=== PATIENT | female | born 1955 | race African-American/Black ===

== ENCOUNTER 2017-12-12 06:10 | Emergency (ER) | payer OTHER ==
[~2017-12-12] VITALS: Ht 147.3 cm; Wt 59.0 kg
[2017-12-12] MEDS ORDERED: SYNTHROID150 MCG ORAL (06:19)
[2017-12-12 06:24] VITALS: BP 128/78
--- NOTE | 2017-12-12 06:56 | Emergency Room Report ---
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 the patient tucker apparently was drenched with urine and the patient reports that there was some splashed of urine appeared to both eyes patient did wash her eyes out initially Denies any headache denies any visual change denies any other trauma this happened just prior to arrival approximately 6:00 in the morning Allergies: Coded Allergies: No Known Allergies (Unverified , 12/12/17) Patient History Past Medical History: see triage record Pertinent Family History: none Now: No Reviewed Nursing Documentation: PMH: Agreed, PSxH: Agreed Nursing Documentation-PMH Past Medical History: No History, Except For Hx Cardiac Problems: No - Hypothyroidism Review of Systems All Other Systems: negative except mentioned in HPI Physical Exam Vital Signs Date Time Temp Pulse Resp B/P (MAP) Pulse Ox O2 Delivery O2 Flow Rate FiO2 12/12/17 06:15 97.7 66 16 128/78 99 Room Air Sp02 EP Interpretation: reviewed, normal General Appearance: well appearing, no apparent distress Head: normocephalic, atraumatic Eyes: bilateral eye PERRL, bilateral eye EOMI ENT: hearing grossly normal, normal pharynx, TMs + canals normal, uvula midline Neck: supple Respiratory: lungs clear Gastrointestinal: non tender, soft Musculoskeletal: normal inspection Neurologic: alert, oriented x3 Skin: normal color, no rash Lymphatic: no adenopathy Medical Decision Making Diagnostic Impression: Primary Impression: work foreign contact Additional Impression: Foreign body, eye ER Course Given the patient's presentation and history Baseline exposure blood tests were obtained Patient was also wearing her contacts She was requested to remove the contacts and further washout of the eyes were performed Patient at this time is stable for close workers comp clinic followup repeat blood test as appropriate Labs Test 12/12/17 06:55 HIV (1&2) Antibody Rapid Negative (NEGATIVE) Last Vital Signs Date Time Temp Pulse Resp B/P (MAP) Pulse Ox O2 Delivery O2 Flow Rate FiO2 12/12/17 06:24 97.7 16 128/78 99 Room Air 12/12/17 06:15 66 Status: improved Disposition: HOME, SELF-CARE Condition: Improved Patient Instructions: Eye Foreign Body, Medical Screening Exam Additional Instructions: followup hospital workers comp as appropriate in the next 2-days. Please make contact with malt house operator for further care ALESSANDRA GODOY D.O. Dec 12, 2017 06:56
[2017-12-12 07:13] VITALS: BP 128/78
== END 2017-12-12 07:13 | disposition home or self-care (01) ==
LOC: EMR 06:40
DX: T15.92XA Foreign body on external eye, part unspecified, left eye, initial encounter (principal); T15.91XA Foreign body on external eye, part unspecified, right eye, initial encounter; X58.XXXA Exposure to other specified factors, initial encounter; Y93.9 Activity, unspecified; Y99.0 Civilian activity done for income or pay; E03.9 Hypothyroidism, unspecified
CPT/HCPCS: 86703; 86803; 87517; 99283